=== PATIENT | male | born 1970 | race Caucasian/White ===

== ENCOUNTER 2019-03-31 09:20 | Emergency (ER) | payer OTHER ==
[2019-03-31] MEDS ORDERED: IBUPROFEN 400 MG TABLET (FP) PO ONE ×2 (09:41→09:43)
[2019-03-31] MEDS ORDERED: DIPHTH,PERTUSS(ACELL),TET 0.5 ML DISP.SYRIN IM ONE ×2 (09:41→09:55)
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
[2019-03-31 09:51] VITALS: BP 98/64; PULSE 70; TEMP 97.7; BMI 20.7
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
== END 2019-03-31 13:07 | disposition home or self-care (01) ==
LOC: FER 09:20
PROC: 3E0234Z Introduction of Serum, Toxoid and Vaccine into Muscle, Percutaneous Approach (ICD-10-PCS; principal; 2019-03-31)
DX: Z04.3 Encounter for examination and observation following other accident (principal); V18.0XXA Pedal cycle driver injured in noncollision transport accident in nontraffic accident, initial encounter; Y93.55 Activity, bike riding; Y92.89 Other specified places as the place of occurrence of the external cause
CPT/HCPCS: 70450-TC; 72125-TC; 73070-TC-LT-FY; 73090-TC-LT-FY; 73110-TC-LT-FY; 73130-TC-LT-FY; 73562-TC-RT-FY; 90715; 99284-25